=== PATIENT | male | born 1975 | race Caucasian/White ===

== ENCOUNTER 2019-07-16 12:57 | Emergency (ER) | payer MEDICAID, OTHER ==
[~2019-07-16] VITALS: Ht 162.6 cm; Wt 99.8 kg
[2019-07-16 13:09] VITALS: BP 123/88
--- NOTE | 2019-07-16 13:12 | NUR ---
PATIENT AMBULATED TO BED 12
--- NOTE | 2019-07-16 13:21 | NUR ---
Patient presents to ER for rash all over body x2 weeks. Patient states he gets these bumps that are really itchy and unrelieved by benadryl. Patient is AA&Ox4. Respirations even and unlabored. Updated on poc, verbalized understanding. will continue to monitor.
[2019-07-16 13:26] VITALS: BP 136/99
--- NOTE | 2019-07-16 13:26 | NUR ---
Patient discharged with v/s stable. Written and verbal after care instructions given and explained. Patient alert, oriented and verbalized understanding of instructions. Ambulatory with to car. All questions addressed prior to discharge. ID band removed. Patient advised to follow up with PMD. Rx of prednisone and motron given. Patient educated on indication of medication including possible reaction and side effects. Opportunity to ask questions provided and answered.
--- NOTE | 2019-07-16 13:26 | NUR ---
Patient presents to ER for rash all over body x2 weeks. Patient states he gets these bumps that are really itchy and unrelieved by benadryl. Patient is AA&Ox4. Respirations even and unlabored. Updated on POC, verbalized understanding. Will continue to monitor.
== END 2019-07-16 13:26 | disposition home or self-care (01) ==
LOC: MED 12:57
DX: R21 Rash and other nonspecific skin eruption (principal); F17.210 Nicotine dependence, cigarettes, uncomplicated
CPT/HCPCS: 99283

== ENCOUNTER 2019-07-21 19:16 | Emergency (ER) | payer MEDICAID ==
[~2019-07-21] VITALS: Ht 175.3 cm; Wt 102.5 kg
[2019-07-21 19:19] VITALS: BP 131/97
--- NOTE | 2019-07-21 19:27 | NUR ---
VISUAL ACUITY: BOTH EYES- 20/20, LEFT EYE- 20/20, RIGHT EYE- 20/20.
--- NOTE | 2019-07-21 19:31 | NUR ---
PT AMBULATED TO BED 07 WITH STEADY GAIT. DAUGHTER ACCOMPANIED.
--- NOTE | 2019-07-21 19:45 | NUR ---
43Y MALE, PRESENTED TO ED, C/O RT EYE PAIN NOW 8/10 THAT STARTED YESTERDAY. PT TOOK TYLENOL FOR PAIN BUT NO RELIEF, NOTED RT LOWER EYE LID WITH SWELLING AND REDNESS, PT STATED IT GOTTEN WORSE SINCE YESTERDAY. NO DISCHARGE NOTED, PT REPORTS BLURRY VISION TO RT EYE, TRIAGE NURSE PERFORMED VISUAL ACUITY, 20/20 OU, 20/20 OD, 20/20 OS. DENIES ITCHING, FEVER, N/V, RECENT ILLNESS, OR ALLERGIES. PT AAOX4, RR EVEN UNLABORED, GCS 15, EDMD MADE AWARE, WILL CONTINUE TO MONITOR CLOSELY, BED LOCKED IN LOWEST POSITION, SIDERAIL UPX1. PMH-- DENIES
--- NOTE | 2019-07-21 20:24 | NUR ---
Dr. De La Cruz examining patient.
[2019-07-21] MEDS ORDERED: SULFAMETH/TRIMETH DS 800/160MG 1 TAB PO ONE (20:35)
[2019-07-21] MEDS ORDERED: KETOROLAC 60 MG/2 ML VIAL IM ONE (20:35)
[2019-07-21] MEDS ORDERED: CEPHALEXIN 500 MG CAP PO ONE (20:35)
--- NOTE | 2019-07-21 20:51 | NUR ---
PT RETURN FROM RAD
[2019-07-21 22:28] VITALS: BP 128/87
--- NOTE | 2019-07-21 22:28 | NUR ---
DISCHARGE PAPERS GIVEN TO PT. PT STATES RELIEF. VSS. RX OF GARAMYCIN, KEFLEX, AND BACTRIM GIVEN. SIDE EFFECTS EXPLAINED. INSTRUCTED TO F/U WITH PCP AND WHEN TO RETURN TO ER. ALL QUESTIONS ANSWERED.
== END 2019-07-21 22:28 | disposition home or self-care (01) ==
LOC: MED 19:16
DX: H05.012 Cellulitis of left orbit (principal)
CPT/HCPCS: 70480; 96372; 99284; J1885

== ENCOUNTER 2020-06-11 08:50 | Emergency (ER) | payer OTHER, SELFPAY ==
[~2020-06-11] VITALS: Ht 165.1 cm; Wt 93.0 kg
[2020-06-11 09:03] VITALS: BP 119/76
--- NOTE | 2020-06-11 09:14 | NUR ---
BIB SELF C/O HEADACHE,N/V, FEVER,COUGH , LOSS OF TASTE X 2 DAYS. TEMP 98.1, P 123, RR 22, O2 SAT 100%, BP 119/76 AT THIS TIME. MED HX: DENIES
--- NOTE | 2020-06-11 09:15 | NUR ---
COVID SWAB DONE.
--- NOTE | 2020-06-11 09:18 | NUR ---
P 109 AT THIS TIME.
[2020-06-11] MEDS ORDERED: ONDANSETRON 4 MG/2 ML VIAL IVP ONE (09:30)
[2020-06-11] MEDS ORDERED: NACL 0.9% 1,000 ML IV ONE (09:30)
--- NOTE | 2020-06-11 09:32 | NUR ---
pt amb to bed9
[2020-06-11 11:11] VITALS: BP 122/68
== END 2020-06-11 11:10 | disposition home or self-care (01) ==
LOC: MED 08:50
DX: E86.0 Dehydration (principal); B34.9 Viral infection, unspecified; R11.10 Vomiting, unspecified; Z20.828 Contact with and (suspected) exposure to other viral communicable diseases
CPT/HCPCS: 96361; 96374; 99283; J2405; J7030; U0003

== ENCOUNTER 2023-09-28 22:40 | Emergency (ER) | payer MEDICAID, OTHER ==
[~2023-09-28] VITALS: Ht 165.1 cm; Wt 93.0 kg
[2023-09-28 22:45] VITALS: BP 118/75; PULSE 113; RESP 17; TEMP 98.3; O2SAT 95
[2023-09-29 00:42] LABS: APPEARANCE,URINE CLEAR (CLEAR); BILIRUBIN,URINE 1+ (NEGATIVE); BLOOD, URINE TRACE-I (NEGATIVE); COLOR,URINE YELLOW (YELLOW); LEUKOCYTE ESTERASE ,URINE 2+ (NEGATIVE); NITRITE, URINE POSITIVE (NEGATIVE); PROTEIN,URINE 2+ (NEGATIVE); UGLUCOSE 1+ (NEGATIVE); UROBILINOGEN,URINE >=8.0 EU/dL (0.2 - 1)
[2023-09-29 00:59] LABS: ICTOTEST POSITIVE (NEGATIVE)
[2023-09-29 01:00] LABS: BACTERIA,URINE 10-30 (MOD) /HPF (None Seen); MUCUS,URINE 1+ /LPF (None Seen); SQUAMOUS EPITHELIAL CELL,UR 0-3 (FEW) /LPF (0-3 (FEW)); WBC,URINE TOO MANY TO COUNT /HPF (0-5)
[2023-09-29] MEDS ORDERED: cephALEXin 500 MG CAP PO ONE (01:35)
[2023-09-29] MEDS ORDERED: PYR100 PO (01:36)
[2023-09-29] MEDS ORDERED: CIPR500T4 PO (01:36)
[2023-09-29 01:45] VITALS: BP 117/72; PULSE 97; RESP 18; TEMP 98.1; O2SAT 98
== END 2023-09-29 01:48 | disposition home or self-care (01) ==
LOC: MED 22:40
DX: N39.0 Urinary tract infection, site not specified (principal); Z79.899 Other long term (current) drug therapy; Z79.2 Long term (current) use of antibiotics
CPT/HCPCS: 81001; 87086; 87491; 99283

== ENCOUNTER 2024-07-26 20:29 | Emergency (ER) | payer MEDICAID ==
[~2024-07-26] VITALS: Ht 165.1 cm; Wt 103.4 kg
[~2024-07-26 20:29] MED LIST: CIPR500T4 PO; PYR100 PO
[2024-07-26 20:51] VITALS: BP 111/78; PULSE 108; RESP 22; TEMP 98.3; O2SAT 94
[2024-07-26] MEDS: KETOROLAC 30 MG/ML VIAL IM ONE (21:15)
[2024-07-26 21:25] VITALS: O2SAT 94
[2024-07-26 21:29] LABS: BILIRUBIN,URINE 1+ (NEGATIVE); BLOOD, URINE 3+ (NEGATIVE); LEUKOCYTE ESTERASE ,URINE 2+ (NEGATIVE); NITRITE, URINE POSITIVE (NEGATIVE); PH,URINE 6.5 (5.0-9.0); PROTEIN,URINE 2+ (NEGATIVE); UGLUCOSE 2+ (NEGATIVE); UROBILINOGEN,URINE >=8.0 EU/dL (0.2 - 1)
[2024-07-26 21:34] LABS: APPEARANCE,URINE HAZY (CLEAR); COLOR,URINE AMBER (YELLOW)
[2024-07-26 21:37] LABS: ICTOTEST NEGATIVE (NEGATIVE)
[2024-07-26 21:38] LABS: BACTERIA,URINE 3+ /HPF (None Seen); RBC,URINE 11-20 (MOD) /HPF (0-5); WBC,URINE >25 (MANY) /HPF (0-5)
[2024-07-26 21:39] LABS: MUCUS,URINE 3+ /LPF (None Seen); SQUAMOUS EPITHELIAL CELL,UR 4-10 (MOD) /LPF (0-3 (FEW))
[2024-07-26 23:08] VITALS: BP 128/79; PULSE 97; RESP 20
[2024-07-26] MEDS ORDERED: CEFP200T20 PO (23:29)
[2024-07-26] MEDS ORDERED: IBUP-2213 PO (23:29)
[2024-07-26] MEDS ORDERED: LIDOCAINE MPF 1% 5 ML ONE (23:35)
[2024-07-26] MEDS ORDERED: cefTRIAXone 1,000 MG VIAL ONE (23:35)
[2024-07-26] MEDS: cefTRIAXone 1,000 MG in LIDOCAINE MPF 1% 2.1 ML IM ONE (23:38)
== END 2024-07-26 23:41 | disposition home or self-care (01) ==
LOC: MED 20:29
DX: N39.0 Urinary tract infection, site not specified (principal); N50.812 Left testicular pain; E11.9 Type 2 diabetes mellitus without complications; Z79.899 Other long term (current) drug therapy
CPT/HCPCS: 76870; 81001; 87086; 87491; 96372; 99285; J0696; J1885; J2001